=== PATIENT | female | born 1995 | race Caucasian/White ===

== ENCOUNTER 2020-06-05 16:58 | Emergency (ER) | payer OTHER, SELFPAY ==
--- NOTE | ~2020-06-05 | CT_ITS ---
EXAMINATION: CT orbit BI w con DATE: 06/05/2020 20:30 INDICATION: Right periorbital cellulitis. TECHNIQUE: Computed tomography (CT) of the orbits was performed with 100 mL Omnipaque 350 intravenous contrast. Automated exposure control and iterative reconstruction technique were employed. The dose- length product was 193.53 mGy-cm. COMPARISON: None. FINDINGS: There is right periorbital fat stranding, consistent with cellulitis. The orbits are normal . There is mild mucosal thickening in the maxillary sinuses. The mastoid air cells are normal. IMPRESSION: 1. Mild right periorbital cellulitis. No orbital involvement. Reviewed, dictated and finalized at [facility].
[2020-06-05 18:17] VITALS: BP 120/79; PULSE 94; RESP 18; TEMP 36.4; O2SAT 96
--- NOTE | 2020-06-05 19:31 | ED.EYEPROB ---
HPI - Eye Problem General Chief complaint: Eye Problems Stated complaint: SWELLING TO RIGHT EYE Time Seen by Provider: 06/05/20 19:31 Source: patient Mode of arrival: ambulatory Limitations: no limitations History of Present Illness HPI Narrative: Patient is a 24-year-old female who presents for evaluation of right eye irritation. Patient states irritation began approximately 4 days ago and she thought it started as the beginning of a stye which she has these from time to time in her eyelashes. Patient states pain at the site that is dull, aching in nature. She denies any current discharge. No blistering on the forehead. Patient does report some tingling around the eye, she denies vision changes, blurry vision or trauma to the eye. She does not wear contact lenses although she is prescribed these. She denies fever. She denies any pain with movement of the eyes. Patient's primary care physician sent her here for evaluation as they were worried about orbital cellulitis. Related Data Allergies Allergy/AdvReac Type Severity Reaction Status Date / Time No Known Allergies Allergy Unknown Unverified 07/20/19 08:32 No Known Allergies Allergy Uncoded 07/20/19 08:32 Review of Systems Review of Systems: Narrative: CONSTITUTIONAL: Denies fever HEENT: Reports bump, irritation on bottom part of left eyelid, denies discharge from my, denies blurry vision or double vision CARDIOVASCULAR: Denies chest pain RESPIRATORY: Denies cough or dyspnea. GASTROINTESTINAL: Denies abdominal pain SKIN: Denies rash MUSCULOSKELETAL: Denies back pain NEUROLOGIC: Denies headache PMFSH Past Medical History Medical History (Updated 06/05/20 @ 20:49 by Janet Mason MD) No pertinent past medical history Social History Social History (Updated 06/05/20 @ 19:41 by Janet Mason MD) Smoking status: Never smoker Alcohol intake: never Substance use: never Gender identity (if verbalized by the patient): Female Exam Narrative: Exam Narrative: GENERAL: Awake, alert, conversant HEAD: Normocephalic, atraumatic. EYES: 2+ PERRLA, extraocular movements intact, no pain in the eye with extraocular movements, no proptosis, no conjunctival injection, edema of the inferior eyelid, small pustule present, no vesicle, no blistering of the forehead, nose, maxilla or chin, mild left inferior eye orbit edema, rash to the bilateral maxilla, patient states this is chronic for her ENT: Nares clear, no rhinorrhea or epistaxis. Mucous membranes moist. NECK: Supple. CHEST: No respiratory distress, breathing even and non labored HEART: Regular rate, sinus rhythm ABDOMEN:Non distended, non tender EXTREMITIES: Normal range of motion. No edema. SKIN: Warm, dry NEURO:No focal deficits. Alert and oriented x3 Course Vital Signs Vital signs: Vital Signs Temperature 36.4 C L 06/05/20 18:17 Pulse Rate 94 06/05/20 18:17 Respiratory Rate 18 06/05/20 18:17 Blood Pressure 120/79 06/05/20 18:17 Pulse Oximetry 96 06/05/20 18:17 Temperature 36.6 C 06/05/20 21:43 Pulse Rate 80 06/05/20 21:43 Respiratory Rate 19 06/05/20 21:43 Blood Pressure 115/74 06/05/20 21:43 Pulse Oximetry 98 06/05/20 21:43 MDM - Eye Problem MDM Narrative Medical decision making narrative: Patient presented for evaluation of right eye irritation. The time of initial assessment, ABCs are intact and vital signs are stable. Patient without proptosis, no conjunctival injection, no pain with extraocular movements and no visual deficits making my suspicion for orbital cellulitis very low. This may be an early periorbital cellulitis, there is no large active stye, no vesicles to be concerning for shingles or herpetic infection at this point. Laboratory results are reassuring. No severe leukocytosis. Patient is not septic. Given reassuring exam without visual deficits, no CT scan findings concerning for orbital cellulitis, patient tolerating oral intake, will give fir
[2020-06-05 19:50] VITALS: BP 103/71; PULSE 81; RESP 19; O2SAT 98
[2020-06-05] MEDS: ACETAMINOPHEN 500 MG TABLET 1000 MG PO (19:50)
[2020-06-05 19:54] LABS: Basophils Percent Auto 0.2 % (0.2-1.2); Eosinophils Absolute Auto 0.1 K/mm3 (0-0.3); Eosinophils Percent Auto 1.7 % (0-4.4); Hematocrit 40.3 % (37.0-47.0); Hemoglobin 13.3 g/dL (12.0-15.0); Immature Granulocyte Absolute 0.02 K/mm3 (0.00-0.031); Immature Granulocyte Percent A 0.3 % (0-0.5); Lymphocytes Absolute Auto 1.84 K/mm3 (0.9-3.2); Lymphocytes Percent Auto 30.5 % (18.3-44.2); Mean Corpuscular Hemoglobin 29.8 pg (26-34); Mean Corpuscular Volume 90.2 fl (80-100); Mean Platelet Volume 10.3 fl (7.4-10.4); Monocytes Absolute Auto 0.5 K/mm3 (0.1-0.6); Monocytes Percent Auto 8.4 % (2.6-8.5); Neutrophils Absolute Auto 3.6 K/mm3 (1.3-6.7); Neutrophils Percent Auto 58.9 % (45.5-73.1); Platelet Count Result 258 k/mm3 (150-375); Red Blood Count 4.47 M/mm3 (4.2-5.4); Red Cell Distribution Width 12.4 % (11.5-14.5)
[2020-06-05 20:09] LABS: Anion Gap 6 mmol/L (8-16); Blood Urea Nitrogen 14 mg/dL (7-17); CRP < 0.5 mg/dL (<1.0); Calcium 8.6 mg/dL (8.4-10.2); Carbon Dioxide 27 mmol/L (22-30); Chloride 105 mmol/L (98-107); Estimated CRCL calculation 88 ml/min; Estimated Glomerular Filt Rate > 60; Glucose 88 mg/dL (65-105); Sodium 138 mmol/L (137-145)
[2020-06-05] MEDS: CLINDAMYCIN 450 MG in DEXTROSE 5% IN WATER 50 ML 106 MG IVPB (21:14)
[2020-06-05 21:43] VITALS: BP 115/74; PULSE 80; RESP 19; TEMP 36.6; O2SAT 98
== END 2020-06-05 21:45 | disposition home or self-care (01) ==
PROVIDERS: Emergency Provider Emergency Medicine
DX: L03.213 Periorbital cellulitis (principal)
CPT/HCPCS: 36415; 70481; 80048; 85025; 86140; 96365; 99284; A9270; Q9967

== ENCOUNTER 2020-08-19 02:10 | Emergency (ER) | payer OTHER, SELFPAY ==
--- NOTE | ~2020-08-19 | CT_ITS ---
EXAMINATION: CTA chest PE protocol DATE: 08/19/2020 03:45 INDICATION: Chest pain. History of lupus. TECHNIQUE: Computed tomography angiography (CTA) of the chest was performed with 100 mL Omnipaque-350 intravenous contrast timed to evaluate the pulmonary arteries. Coronal maximum intensity projection 3D-reconstructions were created by the technologist. Automated exposure control and iterative reconst ruction technique were employed. Exam dose: 174.98 mGy-cm total exam DLP. COMPARISON: None. FINDINGS: There is diagnostic contrast enhancement of the pulmonary arteries and no evidence of pulmo nary embolism. No thoracic aortic aneurysm or dissection. No hilar or mediastinal mass lesion or lymphadenopathy. Normal heart size. No pericardial or pleural effusion. Normal adrenal glands. Included upper abdominal structures are unremarkable. There is significant narrowing of the right subclavian vein at the junction of the first rib and clav icle/with large collaterals in the right neck and right upper back. Recommend clinical correlation fo r thoracic outlet syndrome. No pulmonary infiltrate or consolidation. No pulmonary mass lesion. Included skeletal structures are unremarkable. IMPRESSION: No evidence of pulmonary embolism Possible thoracic outlet syndrome on the right Reviewed, dictated and finalized at [facility]. Reviewed, dictated and finalized at [facility]. CURER
[2020-08-19 02:15] VITALS: BP 130/98; PULSE 81; RESP 18; TEMP 36.3; O2SAT 100
--- NOTE | 2020-08-19 02:23 | ECG_ITS ---
Measurements Intervals [place] Rate: 75 P: 67 ND: 180 QRS: 94 QRSD: 95 T: 40 QT: 392 QTc: 439 Interpretive Statements SINUS RHYTHM RIGHT AXIS DEVIATION BORDERLINE ECG Electronically Signed On 08-19-2020 8:04:37 TIMBER INSPECTOR by Kiko De Leon D.O.
[2020-08-19 02:37] VITALS: PULSE 73
[2020-08-19 02:39] LABS: Basophils Percent Auto 0.5 % (0.2-1.2); Eosinophils Absolute Auto 0.1 K/mm3 (0-0.3); Eosinophils Percent Auto 1.6 % (0-4.4); Hematocrit 37.3 % (37.0-47.0); Hemoglobin 12.5 g/dL (12.0-15.0); Immature Granulocyte Absolute 0.01 K/mm3 (0.00-0.031); Immature Granulocyte Percent A 0.3 % (0-0.5); Lymphocytes Absolute Auto 1.66 K/mm3 (0.9-3.2); Lymphocytes Percent Auto 44.6 % (18.3-44.2); Mean Corpuscular HGB Conc 33.5 g/dl (32-36); Mean Corpuscular Hemoglobin 29.9 pg (26-34); Mean Corpuscular Volume 89.2 fl (80-100); Mean Platelet Volume 10.2 fl (7.4-10.4); Monocytes Absolute Auto 0.4 K/mm3 (0.1-0.6); Monocytes Percent Auto 11.8 % (2.6-8.5); Neutrophils Absolute Auto 1.5 K/mm3 (1.3-6.7); Neutrophils Percent Auto 41.2 % (45.5-73.1); Platelet Count Result 272 k/mm3 (150-375); Red Blood Count 4.18 M/mm3 (4.2-5.4); Red Cell Distribution Width 12.6 % (11.5-14.5); White Blood Count 3.7 K/mm3 (4.5-10.0)
[2020-08-19 02:48] LABS: INR 1.1; Partial Thromboplastin Time 28.8 SECONDS (22.3-36.8); Prothrombin Time 14.7 Seconds (11.1-14.7)
[2020-08-19 02:52] LABS: Anion Gap 8 mmol/L (8-16); Blood Urea Nitrogen 12 mg/dL (7-17); Calcium 9.3 mg/dL (8.4-10.2); Carbon Dioxide 27 mmol/L (22-30); Chloride 102 mmol/L (98-107); Estimated Glomerular Filt Rate > 60; Glucose 124 mg/dL (65-105); Potassium 3.8 mmol/L (3.4-5.0); Sodium 137 mmol/L (137-145)
[2020-08-19 03:05] LABS: NT Pro B Type Natriuretic Pept 22 PG/ML (5-100); Troponin I < 0.012 ng/mL (0.000-0.034)
[2020-08-19 03:35] VITALS: BP 102/74; PULSE 71; RESP 17; O2SAT 99
--- NOTE | 2020-08-19 04:47 | ED.CHESTPAIN ---
HPI - Chest Pain General Chief Complaint: Chest Pain Stated Complaint: chest and back pain Time Seen by Provider: 08/19/20 02:34 History of Present Illness HPI narrative: Patient a 22-year-old female presents emerged part with chief complaint of chest pain. The patient states that the pain has been going on for several days states it is sharp states it is not improved by anything nor is worsened by any. The patient reports that recently she was diagnosed with possible lupus and is to see a button machine operator about it. Patient states that she is not having any shortness of breath denies hypoxia denies tachycardia. The patient denies a history of connective tissue disorder. Related Data Allergies Allergy/AdvReac Type Severity Reaction Status Date / Time No Known Allergies Allergy Unknown Unverified 07/20/19 08:32 No Known Allergies Allergy Uncoded 07/20/19 08:32 Review of Systems Review of Systems: Narrative: CONSTITUTIONAL: Denies fever, chills, or sweats. EYES: Denies visual changes, redness, or discharge. ENT: Denies rhinorrhea, congestion, sore throat, or otalgia. CARDIOVASCULAR: Denies chest pain, palpitations, or edema. RESPIRATORY: Denies cough or dyspnea. GASTROINTESTINAL: Denies abdominal pain, nausea, vomiting, or diarrhea. GENITOURINARY: Denies dysuria or hematuria. SKIN: Denies rash or itching. MUSCULOSKELETAL: Denies back pain, joint pain, or myalgia. NEUROLOGIC: Denies headache, numbness, or weakness. PSYCHIATRIC: Denies anxiety or depression. A 10 system review of systems was completed on the patient and is negative except for what is stated in the HPI. Nursing and ancillary documentation was reviewed. PMFSH Past Medical History Medical History No pertinent past medical history Social History Social History Smoking status: Never smoker Alcohol intake: never Substance use: never Gender identity (if verbalized by the patient): Female Comments Recent diagnosis of lupus Exam Narrative: Exam Narrative: GENERAL: Well-appearing, well-nourished, and in no acute distress. HEAD: Normocephalic, atraumatic. EYES: PERRLA and EOMI. ENT: Nares clear, no rhinorrhea or epistaxis. Mucous membranes moist. NECK: Supple. CHEST: Clear to auscultation. No respiratory distress. HEART: Regular rate and rhythm. No murmur heard. Normal peripheral pulses. ABDOMEN: Soft, nontender, nondistended, normal active bowel sounds. EXTREMITIES: Normal range of motion. No edema. SKIN: Warm, dry, no rash. NEURO: No focal deficits. Alert and oriented x3. PSYCH: Normal mood and affect. Course Course Emergency Course: CTA chest shows evidence of thoracic outlet syndrome. There is no evidence of pulmonary embolism EKG shows sinus rhythm no ST elevation or ST depression Vital Signs Vital signs: Vital Signs Temperature 36.3 C L 08/19/20 02:15 Pulse Rate 81 08/19/20 02:15 Respiratory Rate 18 08/19/20 02:15 Blood Pressure 130/98 H 08/19/20 02:15 Pulse Oximetry 100 08/19/20 02:15 Temperature 36.3 C L 08/19/20 02:15 Pulse Rate 71 08/19/20 03:35 Respiratory Rate 17 08/19/20 03:35 Blood Pressure 102/74 08/19/20 03:35 Pulse Oximetry 99 08/19/20 03:35 MDM - Chest Pain Lab Data Result diagrams: 08/19/20 02:31 08/19/20 02:31 Labs: Lab Results 08/19/20 08/19/20 08/19/20 Range/Units 02:31 02:31 02:31 WBC 3.7 L (4.5-10.0) K/mm3 RBC 4.18 L (4.2-5.4) M/mm3 Hgb 12.5 (12.0-15.0) g/dL Hct 37.3 (37.0-47.0) % MCV 89.2 (80-100) fl MCH 29.9 (26-34) pg MCHC 33.5 (32-36) g/dl RDW 12.6 (11.5-14.5) % Plt Count 272 (150-375) k/mm3 MPV 10.2 (7.4-10.4) fl Immature Gran % (Auto) 0.3 (0-0.5) % Neut % (Auto) 41.2 L (45.5-73.1) % Lymph % (Auto) 44.6 H (18.3-44.2) % [place] % (Auto) 11.8 H
[2020-08-19 05:02] VITALS: BP 116/53; PULSE 75; RESP 18; TEMP 36.8; O2SAT 94
== END 2020-08-19 05:05 | disposition home or self-care (01) ==
PROVIDERS: Emergency Provider Emergency Medicine
DX: G54.0 Brachial plexus disorders (principal); R07.9 Chest pain, unspecified; R94.31 Abnormal electrocardiogram [ECG] [EKG]
CPT/HCPCS: 36415; 71275; 80048; 81025; 83880; 84484; 85025; 85610; 85730; 93005; 99284; Q9967

== ENCOUNTER 2020-08-29 04:09 | Emergency (ER) | payer OTHER, SELFPAY ==
[2020-08-29 04:12] VITALS: BP 110/67; PULSE 82; RESP 14; TEMP 36.4; O2SAT 98
--- NOTE | 2020-08-29 04:49 | ED.ABDPAIN ---
HPI - Abdominal Pain General Chief Complaint: Abdominal Pain Stated Complaint: neck and abd pain Time Seen by Provider: 08/29/20 04:19 Source: patient Mode of arrival: ambulatory Limitations: no limitations History of Present Illness HPI narrative: This patient is 24 year old female who presents for evaluation of lower abdominal pain. She states this pain has been present for over 1 week. She describes pain has sharp and intermittent. Her pain last for few seconds before it resolves. She has not taken anything for pain. She reports sexual intercourse is painful. Related Data Allergies Allergy/AdvReac Type Severity Reaction Status Date / Time No Known Allergies Allergy Unknown Verified 08/29/20 04:16 Review of Systems Review of Systems: All systems reviewed & are unremarkable except as noted in HPI and below Constitutional: Constitutional: Denies chills and Denies fever(s) ENT: Denies nasal congestion Cardiovascular: Cardiovascular: Denies chest pain Respiratory: Respiratory: Denies dyspnea Gastrointestinal: Gastrointestinal: Reports abdominal pain, Denies diarrhea, Denies nausea and Denies vomiting Genitourinary: Genitourinary: Denies hematuria and Denies nocturia [facility] Past Medical History Medical History No pertinent past medical history Social History Social History Smoking status: Never smoker Alcohol intake: never Substance use: never Gender identity (if verbalized by the patient): Female Exam Const: General: no acute distress and alert Orientation/consciousness: patient oriented x3 HENMT: Head: normocephalic and atraumatic Face and sinus: face symmetric Eyes: EOM: EOMs intact bilaterally Chest: Chest palpation & inspection: normal inspection of the chest Resp: Effort & Inspection: normal respiratory effort and no use of accessory muscles Auscultation: clear to auscultation bilaterally Cardio: Rate: regular rate Rhythm: regular rhythm Heart sounds: no murmurs GI: GI Palp: Yes Soft to palpation, No Tenderness to palpation present (GI) and No Guarding due to palpation present (GI) Auscultation: normal bowel sounds : Speculum Exam - Cervix: Cervical os closed Other: white mucous cervical , +CMT Skin: General skin exam: normal color Rashes: no rashes Neuro: General: patient oriented x3 and moves all extremities Extrem: General: normal to inspection and no pedal edema Other: bilateral radial pulse Psych: Mental Status: mental status grossly normal Affect: normal affect Course Reevaluation(s) Reevaluation #1: PAtient evaluation has been unremarkable other than CMT with some white discharge. I have discussed with patient that labs are unremarkable but she will be treated with antibiotics for PID due to pain and discharge. Date: 08/29/20 Time: 06:03 Vital Signs Vital signs: Vital Signs Temperature 97.6 F 08/29/20 04:12 Pulse Rate 82 08/29/20 04:12 Respiratory Rate 14 08/29/20 04:12 Blood Pressure 110/67 08/29/20 04:12 Pulse Oximetry 98 08/29/20 04:12 Temperature 97.6 F 08/29/20 04:12 Pulse Rate 64 08/29/20 06:20 Respiratory Rate 15 08/29/20 06:20 Blood Pressure 105/77 08/29/20 06:20 Pulse Oximetry 97 08/29/20 06:20 MDM - Abdominal Pain Lab Data Attestation: I reviewed the patient's lab results. Result diagrams: 08/29/20 04:39 08/29/20 04:39 Labs: Lab Results 08/29/20 08/29/20 08/29/20 Range/Units 04:39 04:39 04:39 WBC 4.6 (4.5-10.0) K/mm3 RBC 4.21 (4.2-5.4) M/mm3 Hgb 12.7 (12.0-15.0) g/dL Hct 38.5 (37.0-47.0) % MCV 91.4 (80-100) fl MCH 30.2 (26-34) pg MCHC 33.0 (32-36) g/dl RDW 12.3 (11.5-14.5) % Plt Count 216 (150-375) k/mm3 MPV 10.7 H (7.4-10.4) fl Immature Gran % (Auto) 0.0 (0-0.5) % Neut % (Auto)
[2020-08-29 04:56] LABS: Add Urine Microscopic? YES; Appearance Urine Clear (Clear); Bacteria Urine Trace /hpf; Bilirubin Urine Negative (Negative); Blood Urine Negative (Negative); Color Urine Yellow (Yellow); Glucose Urine UA Negative (Negative); Ketones Urine Negative (Negative); Leukocyte Esterase Ur Negative LEU/UL (Negative); Mucus Urine Rare /lpf; Nitrate Urine Negative (Negative); Protein Urine Negative (Negative); RBC Urine 0-2 /hpf (0-2); Specific Grav Ur 1.029 (1.001-1.035); Squamous Epithelial Cell Urine Many /hpf (Few); Urobilinogen Urine Negative mg/dL (<2.0); WBC Urine 0-3 /hpf
[2020-08-29 04:59] LABS: Basophils Percent Auto 0.4 % (0.2-1.2); Eosinophils Absolute Auto 0.1 K/mm3 (0-0.3); Eosinophils Percent Auto 1.5 % (0-4.4); Hematocrit 38.5 % (37.0-47.0); Hemoglobin 12.7 g/dL (12.0-15.0); Lymphocytes Absolute Auto 1.62 K/mm3 (0.9-3.2); Lymphocytes Percent Auto 35.5 % (18.3-44.2); Mean Corpuscular Hemoglobin 30.2 pg (26-34); Mean Corpuscular Volume 91.4 fl (80-100); Mean Platelet Volume 10.7 fl (7.4-10.4); Monocytes Absolute Auto 0.5 K/mm3 (0.1-0.6); Neutrophils Absolute Auto 2.4 K/mm3 (1.3-6.7); Neutrophils Percent Auto 51.6 % (45.5-73.1); Platelet Count Result 216 k/mm3 (150-375); Red Blood Count 4.21 M/mm3 (4.2-5.4); Red Cell Distribution Width 12.3 % (11.5-14.5); White Blood Count 4.6 K/mm3 (4.5-10.0)
[2020-08-29 05:11] LABS: Alanine Aminotransferase 13 U/L (4-35); Albumin Level 4.1 g/dL (3.5-5.1); Alkaline Phosphatase 42 U/L (38-126); Anion Gap 6 mmol/L (8-16); Aspartate Amino Transferase 24 U/L (14-36); Bilirubin,Total 0.3 mg/dL (0.2-1.3); Blood Urea Nitrogen 19 mg/dL (7-17); Calcium 9.2 mg/dL (8.4-10.2); Carbon Dioxide 30 mmol/L (22-30); Chloride 104 mmol/L (98-107); Estimated CRCL calculation 85 ml/min; Estimated Glomerular Filt Rate > 60; Glucose 75 mg/dL (65-105); Lipase 89 U/L (23-300); Potassium 3.7 mmol/L (3.4-5.0); Sodium 140 mmol/L (137-145)
[2020-08-29] MEDS: cefTRIAXone 250 MG VIAL IM (05:51)
[2020-08-29] MEDS: LIDOCAINE HCL 1% LOCAL INJ 20 ML VIAL (05:51)
[2020-08-29 06:20] VITALS: BP 105/77; PULSE 64; RESP 15; O2SAT 97
== END 2020-08-29 06:20 | disposition home or self-care (01) ==
PROVIDERS: Emergency Provider General Practice
DX: N73.9 Female pelvic inflammatory disease, unspecified (principal)
CPT/HCPCS: 36415; 80053; 81001; 81025; 83690; 85025; 87070; 87491; 87591; 87808; 96372; 99284; J0696

== ENCOUNTER 2021-03-09 16:53 | Emergency (ER) | payer OTHER, SELFPAY ==
[2021-03-09 16:58] VITALS: BP 121/81; PULSE 85; RESP 16; TEMP 36.9; O2SAT 100
--- NOTE | 2021-03-09 17:02 | ED.FEMALEGU ---
HPI - Female Genitourinary General Chief complaint: Headache Stated complaint: Headaches and Possible UTI Time Seen by Provider: 03/09/21 17:07 Source: patient and RN notes reviewed Mode of arrival: ambulatory Limitations: no limitations History of Present Illness HPI Narrative: 24-year-old female presents with multiple concerns. She reports 2-month history of daily headaches, often causing her to stay in bed during the day. She reports they are one-sided headaches, sometimes behind her right eye. She denies any light sensitivity or aura. She denies any history of migraines. She denies any vomiting, however reports occasional nausea with the headaches. In a separate complaint she also reports left lower abdominal pain radiating to the left side and left flank. She reports the pain is intermittent and has been increasing in frequency and severity over the last 2 weeks. She denies urine urgency, frequency, hematuria. She was recently diagnosed with lupus, started on methotrexate approximately 3 weeks ago. She denies constipation, reports occasional loose stools. She denies weight loss, decreased appetite. She reports intermittent fevers, however reports she chronically has fevers due to her this. She reports runny nose that started yesterday, denies other upper respiratory symptoms. MD elicited complaint: UTI Related Data Home Medications Medication Instructions Recorded Confirmed cetirizine mg 03/09/21 03/09/21 duloxetine 30 mg PO BID 03/09/21 03/09/21 folic acid 03/09/21 hydroxychloroquine 03/09/21 methotrexate sodium 03/09/21 prednisone 15 mg PO DAILY 03/09/21 03/09/21 Allergies Allergy/AdvReac Type Severity Reaction Status Date / Time No Known Allergies Allergy Unknown Verified 03/09/21 17:03 Review of Systems Review of Systems: Narrative: CONSTITUTIONAL: Denies malaise, chills. Reports intermittent sweats and fever. EYES: Denies visual changes, redness, or discharge. ENT: Reports rhinorrhea. Denies congestion, sinus pain, otalgia or sore throat. CARDIOVASCULAR: Denies chest pain, palpitations, or edema. RESPIRATORY: Denies cough or dyspnea. GASTROINTESTINAL: Reports left lower quadrant abdominal pain, nausea. Denies vomiting, constipation, bloody, or mucous stools. Reports occasional loose stool. GENITOURINARY: Denies dysuria frequency, urgency, or hematuria. Reports left flank pain MUSCULOSKELETAL: Denies back pain, joint pain, or myalgia. NEUROLOGIC: Denies numbness, weakness. Reports headache. All systems reviewed & are unremarkable except as noted in HPI and below PMFSH Past Medical History Medical History No pertinent past medical history Social History Social History Smoking status: Never smoker Alcohol intake: never Substance use: never Gender identity (if verbalized by the patient): Female Comments At time of signature, agree with nursing past medical, surgical, social and family history. There is no relevant family history pertinent to the presenting complaint Exam Narrative: Exam Narrative: GENERAL: Well-appearing, well-nourished, and in no acute distress. HEAD: Normocephalic. EYES: PERRLA, conjunctivae clear. NECK: Supple. No lymphadenopathy CHEST: Clear to auscultation. No respiratory distress. HEART: Regular rate and rhythm. ABDOMEN: Soft, left lower quadrant tenderness, nondistended, normal active bowel sounds, no palpable or pulsatile masses, no guarding. No CVA tenderness SKIN: Warm, dry. Butterfly rash NEURO: Alert and oriented x3. No focal deficits PSYCH: Normal mood and affect Course Course Emergency Course: Patient is aware of, understands and agrees to return to be seen the emergency department. Anticipatory guidance given. Patient agrees to proceed directly to the emergency department. Portions of this record may have been created
--- NOTE | 2021-03-09 17:46 | PC.NURSE ---
NO URINE CULTURE PER PROVIDER. PATIENT GOING TO [facility].
== END 2021-03-09 17:40 | disposition short-term general hospital (02) ==
PROVIDERS: Emergency Provider Nurse Practitioner
DX: R10.32 Left lower quadrant pain (principal); R51.9 Headache, unspecified; M32.9 Systemic lupus erythematosus, unspecified
CPT/HCPCS: 81003; 81025; 99213; G0463

== ENCOUNTER 2021-03-09 19:33 | Emergency (ER) | payer OTHER, SELFPAY ==
[2021-03-09 19:39] VITALS: BP 133/77; PULSE 102; RESP 16; TEMP 36.6; O2SAT 99
[2021-03-09 21:04] LABS: Basophils Percent Auto 0.3 % (0.2-1.2); Eosinophils Percent Auto 0.5 % (0-4.4); Hematocrit 43.3 % (37.0-47.0); Immature Granulocyte Absolute 0.02 K/mm3 (0.00-0.031); Immature Granulocyte Percent A 0.3 % (0-0.5); Lymphocytes Absolute Auto 0.98 K/mm3 (0.9-3.2); Lymphocytes Percent Auto 15.7 % (18.3-44.2); Mean Corpuscular HGB Conc 32.3 g/dl (32-36); Mean Corpuscular Hemoglobin 30.2 pg (26-34); Mean Corpuscular Volume 93.5 fl (80-100); Mean Platelet Volume 9.9 fl (7.4-10.4); Monocytes Absolute Auto 0.4 K/mm3 (0.1-0.6); Monocytes Percent Auto 6.9 % (2.6-8.5); Neutrophils Absolute Auto 4.8 K/mm3 (1.3-6.7); Neutrophils Percent Auto 76.3 % (45.5-73.1); Platelet Count Result 298 k/mm3 (150-375); Red Blood Count 4.63 M/mm3 (4.2-5.4); Red Cell Distribution Width 12.9 % (11.5-14.5); White Blood Count 6.2 K/mm3 (4.5-10.0)
[2021-03-09 21:13] LABS: Add Urine Microscopic? NO; Appearance Urine Clear (Clear); Bilirubin Urine Negative (Negative); Blood Urine Negative (Negative); Color Urine Straw (Yellow); Glucose Urine UA Negative (Negative); Ketones Urine Negative (Negative); Leukocyte Esterase Ur Negative LEU/UL (Negative); Nitrate Urine Negative (Negative); Protein Urine Negative (Negative); Specific Grav Ur 1.009 (1.001-1.035); Urobilinogen Urine Negative mg/dL (<2.0)
[2021-03-09 21:16] LABS: Alanine Aminotransferase 17 U/L (4-35); Alkaline Phosphatase 50 U/L (38-126); Anion Gap 9 mmol/L (8-16); Aspartate Amino Transferase 26 U/L (14-36); Bilirubin,Total 0.3 mg/dL (0.2-1.3); Blood Urea Nitrogen 12 mg/dL (7-17); Calcium 9.8 mg/dL (8.4-10.2); Carbon Dioxide 28 mmol/L (22-30); Chloride 103 mmol/L (98-107); Estimated CRCL calculation 105 ml/min; Estimated Glomerular Filt Rate > 60; Glucose 86 mg/dL (65-105); Lipase 114 U/L (23-300); Sodium 140 mmol/L (137-145)
--- NOTE | 2021-03-09 22:39 | ED.GENADULT ---
HPI - General Adult General Chief complaint: Abdominal Pain Stated complaint: Left sided flank pain, [place] Time Seen by Provider: 03/09/21 20:20 History of Present Illness HPI narrative: Patient is a 25-year-old female who presents ER with 2 complaints. First complaint is generalized abdominal discomfort mainly on the left side that occasionally goes to her back. Unknown aggravating or alleviating factors. No nausea/vomiting/diarrhea/constipation. No urinary frequency urgency or dysuria. Had an unremarkable UA at the urgent care. Patient also reports that she has been having headaches intermittently. Occasionally will be located behind the right eye and occasionally behind the left eye. No headache at this time. Has follow-up with neurology scheduled. Related Data Home Medications Medication Instructions Recorded Confirmed cetirizine 10 mg PO DAILY 03/09/21 03/09/21 duloxetine 30 mg PO BID 03/09/21 03/09/21 folic acid 1 mg PO DAILY 03/09/21 03/09/21 hydroxychloroquine 200 mg PO DAILY 03/09/21 03/09/21 methotrexate sodium 2.5 mg PO DAILY 03/09/21 03/09/21 prednisone 15 mg PO DAILY 03/09/21 03/09/21 Allergies Allergy/AdvReac Type Severity Reaction Status Date / Time No Known Allergies Allergy Unknown Verified 03/09/21 17:03 Review of Systems Review of Systems: All systems reviewed & are unremarkable except as noted in HPI and below Constitutional: Constitutional: Denies chills, Denies fever(s) and Denies weakness ENT: Denies nasal congestion and Denies sore throat Gastrointestinal: Gastrointestinal: Reports abdominal pain, Denies constipation, Denies diarrhea, Denies nausea and Denies vomiting Genitourinary: Genitourinary: Denies abnormal vaginal bleeding, Denies hematuria, Denies nocturia, Denies dysuria and Denies urinary incontinence PMF Past Medical History Medical History (Updated 03/09/21 @ 22:42 by Murtaza Villarreal MD) Lupus Surgical History Surgical History (Updated 03/09/21 @ 22:40 by Murtaza Villarreal MD) No pertinent past surgical history Social History Social History Smoking status: Never smoker Alcohol intake: never Substance use: never Gender identity (if verbalized by the patient): Female Exam Narrative: Exam Narrative: GENERAL: Well-appearing, well-nourished, and in no acute distress. HEAD: Normocephalic, atraumatic. EYES: PERRL and EOMI. CHEST: Clear to auscultation. No respiratory distress. HEART: Regular rate and rhythm. Normal peripheral pulses. ABDOMEN: Soft, nontender, nondistended. EXTREMITIES: Normal range of motion. No edema. SKIN: Warm, dry, no rash. NEURO: Alert and oriented x3. PSYCH: Normal mood and affect. Course Course Emergency Course: Unremarkable exam and evaluation. Follow-up with PCP. Discharge home. Vital Signs Vital signs: Vital Signs Temperature 97.9 F 03/09/21 19:39 Pulse Rate 102 H 03/09/21 19:39 Respiratory Rate 16 03/09/21 19:39 Blood Pressure 133/77 03/09/21 19:39 Pulse Oximetry 99 03/09/21 19:39 Temperature 97.9 F 03/09/21 19:39 Pulse Rate 102 H 03/09/21 19:39 Respiratory Rate 16 03/09/21 19:39 Blood Pressure 133/77 03/09/21 19:39 Pulse Oximetry 99 03/09/21 19:39 Medical Decision Making Vital Signs Vital Signs: Vital Signs Temperature 97.9 F 03/09/21 19:39 Pulse Rate 102 H 03/09/21 19:39 Respiratory Rate 16 03/09/21 19:39 Blood Pressure 133/77 03/09/21 19:39 Pulse Oximetry 99 03/09/21 19:39 Temperature 97.9 F 03/09/21 19:39 Pulse Rate 102 H 03/09/21 19:39 Respiratory Rate 16 03/09/21 19:39 Blood Pressure 133/77 03/09/21 19:39 Pulse Oximetry 99 03/09/21 19:39 Lab Data Result diagrams: 03/09/21 20:56 03/09/21 20:56 Labs: Lab Results 03/09/21 03/09/21 03/09/21 Range/Units 20:56 20:56 20:56 WBC 6.2 (4.5-10.0) K/mm3 RBC 4.63 (4.2-5.4) M/mm
[2021-03-09 23:00] VITALS: BP 127/74; PULSE 92; RESP 16; O2SAT 99
== END 2021-03-09 23:00 | disposition home or self-care (01) ==
PROVIDERS: Emergency Provider Emergency Medicine
DX: R10.84 Generalized abdominal pain (principal)
CPT/HCPCS: 36415; 80053; 81003; 81025; 83690; 85025; 99283

== ENCOUNTER 2021-05-04 12:10 | Emergency (ER) | payer OTHER, SELFPAY ==
--- NOTE | ~2021-05-04 | XR_ITS ---
EXAMINATION:XR cervical spine 4-5V DATE: 05/04/2021 13:38 INDICATION: Neck pain TECHNIQUE: AP, lateral, lateral swimmers and odontoid views of the cervical spine are provided. COMPARISON: None FINDINGS: Alignment is normal. The odontoid is intact. No fracture is identified. Vertebral body heig hts and disk spaces are normal. Prevertebral soft tissues are normal. IMPRESSION: 1. No acute osseous abnormality. Reviewed, dictated and finalized at location A.
--- NOTE | ~2021-05-04 | XR_ITS ---
EXAMINATION: XR lumbar spine 2-3V DATE: 05/04/2021 13:38 INDICATION: Low back pain TECHNIQUE: Anteroposterior and lateral views of the lumbar spine, and cone-down lateral view of the l umbosacral junction were obtained. COMPARISON: None. FINDINGS: There is no fracture, dislocation, or subluxation. The vertebral body heights, alignment, a nd intervertebral disc spaces are normal. The paravertebral soft tissues are unremarkable. IMPRESSION: 1. No acute osseous abnormality. Reviewed, dictated and finalized at location A.
[2021-05-04 12:33] VITALS: BP 105/70; PULSE 85; RESP 20; TEMP 36.9; O2SAT 100
[2021-05-04] MEDS: HYDROcodone/acetaminophen (*CRX) 5-325 MG TABLET 1 TAB PO (14:43)
[2021-05-04] MEDS: IBUPROFEN 600 MG TABLET PO (14:43)
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
== END 2021-05-04 15:24 | disposition home or self-care (01) ==
PROVIDERS: Emergency Provider Emergency Medicine
DX: S39.012A Strain of muscle, fascia and tendon of lower back, initial encounter (principal); S13.9XXA Sprain of joints and ligaments of unspecified parts of neck, initial encounter; V43.52XA Car driver injured in collision with other type car in traffic accident, initial encounter
CPT/HCPCS: 72050; 72100; 99283; A9270

== ENCOUNTER 2022-01-09 13:32 | Emergency (ER) | payer OTHER, SELFPAY ==
--- NOTE | ~2022-01-09 | XR_ITS ---
EXAMINATION: XR knee RT min 4V DATE: 01/09/2022 14:26 INDICATION: Right knee pain TECHNIQUE: Five views of the right knee were obtained. COMPARISON: None. FINDINGS: Alignment is normal. No fracture or osteochondral lesion. Joint spaces are normal with no e rosions. No joint effusion/synovitis. Soft tissues are unremarkable. IMPRESSION: 1. No acute osseous abnormality. Reviewed, dictated and finalized at location F.
[2022-01-09 13:39] VITALS: BP 119/75; PULSE 82; RESP 16; TEMP 36.7; O2SAT 100
--- NOTE | 2022-01-09 14:07 | ED.LOWEXIN ---
HPI - Extremity Injury (Lower) General Chief Complaint: Extremity Injury, Lower Stated Complaint: sore throat, congestion, right knee infection Time Seen by Provider: 01/09/22 14:09 Source: patient, RN notes reviewed and old records reviewed Mode of arrival: ambulatory Limitations: no limitations History of Present Illness HPI Narrative: 26 year old female who presents to express care with complaints of right knee pain from a fall which occurred 3 days ago when she tripped and fell onto concrete directly onto her right knee. Patient has healing abrasion to the anterior aspect of her right knee, no pain noted on palpation of knee, reports pain with ambulation. She also reports that she has had sore throat some post nasal drainage and a persistent cough.Patient denies any fevers chills or sweat, reports that she has not had COVID vaccination due to concern of interaction with medication she takes for LUPUS. Patient has red butterfly rash noted to face. MD complaint: knee injury Onset (ago): day(s) (3) Type of Injury: blunt Place: street/outdoors Severity: moderate Severity scale (1-10): 6 Exacerbating factors: weight bearing Context: fall Related Data Home Medications Medication Instructions Recorded Confirmed hydroxychloroquine 200 mg PO DAILY 03/09/21 01/09/22 belimumab [Benlysta] 200 mg SUBCUT WEEKLY 01/09/22 01/09/22 hydroxychloroquine [Plaquenil] 200 mg PO DAILY 01/09/22 01/09/22 mycophenolate mofetil [CellCept] 500 mg PO Q12H 01/09/22 01/09/22 prednisone 10 mg PO DAILY 01/09/22 01/09/22 Allergies Allergy/AdvReac Type Severity Reaction Status Date / Time No Known Allergies Allergy Unknown Verified 01/09/22 13:56 Review of Systems Review of Systems: CONSTITUTIONAL: Denies fever, chills, or sweats. EYES: Denies visual changes, redness, or discharge. ENT: positive rhinorrhea, congestion, sore throat, no otalgia. CARDIOVASCULAR: Denies chest pain, palpitations, or edema. RESPIRATORY: cough denies dyspnea. GASTROINTESTINAL: Denies abdominal pain, nausea, vomiting, or diarrhea. GENITOURINARY: Denies dysuria or hematuria. SKIN: Denies rash or itching. MUSCULOSKELETAL: Denies back pain,positive for right knee pain., or myalgia. NEUROLOGIC: Denies headache, numbness, or weakness. PSYCHIATRIC: Positive for history of anxiety or depression. All systems reviewed & are unremarkable except as noted in HPI and below PMFSH Past Medical History Medical History Lupus Thoracic outlet syndrome Surgical History Surgical History No pertinent past surgical history Social History Social History Smoking status: Never smoker Alcohol intake: never Substance use: never Gender identity (if verbalized by the patient): Female Comments At time of signature, agree with nursing past medical, surgical, social and family history. There is no relevant family history pertinent to the presenting complaint Exam Narrative: GENERAL: Well-appearing, well-nourished, and in no acute distress. HEAD: Normocephalic, atraumatic. EYES: PERRLA and EOMI. ENT: Nares red with turbinates swollen, clear rhinorrhea no epistaxis. Mucous membranes moist.TM's normal with good light reflex, throat with some rednes no leions exudates or acute tonsil swelling NECK: Supple.no lymphadenopathy CHEST: Clear to auscultation. No respiratory distress.SAO2 100% on room air.no tachypnea or dyspnea note HEART: Regular rate and rhythm. No murmur heard. Normal peripheral pulses. ABDOMEN: Soft, nontender, nondistended, normal active bowel sounds. EXTREMITIES: Normal range of motion. No edema. SKIN: Warm, dry, no rash. NEURO: No focal deficits. Alert and oriented x3. Course Course Level of Care: Express Care Visit Vital Signs Vital signs: Vital Signs Temperature 36.7 C 01/09/22 13:39 Pulse Rate 82
== END 2022-01-09 15:10 | disposition home or self-care (01) ==
PROVIDERS: Emergency Provider Registered Nurse
DX: J06.9 Acute upper respiratory infection, unspecified (principal); R05.9 Cough, unspecified; M25.561 Pain in right knee; Z20.822 Contact with and (suspected) exposure to COVID-19; M32.9 Systemic lupus erythematosus, unspecified; G54.0 Brachial plexus disorders; J45.909 Unspecified asthma, uncomplicated
CPT/HCPCS: 73564; 87081; 87426; 87880; 99213; C9803; G0463

== ENCOUNTER 2022-02-04 10:22 | Emergency (ER) | payer OTHER, SELFPAY ==
[2022-02-04 10:28] VITALS: BP 130/73; PULSE 101; RESP 14; TEMP 36.9; O2SAT 100
--- NOTE | 2022-02-04 11:04 | ED.ABDPAIN ---
HPI - Abdominal Pain General Chief Complaint: Abdominal Pain Stated Complaint: Abdominal Pain/ Time Seen by Provider: 02/04/22 11:04 Source: patient Mode of arrival: ambulatory Limitations: no limitations History of Present Illness HPI narrative: Ms. Power is a 26-year-old female patient presenting to the clinic today with complaints of abdominal cramping x3 days and nausea x1 week. She reports she took a test yesterday and it was positive. She denies any urinary symptoms, fever, or chills. She denies any vaginal bleeding or discharge. States the pain is currently a 5 or 6 out of 10 with the cramping. She does have a history of IBS with constipation. Last bowel movement was 2 days ago and was hard. Last menstrual period was last month at the beginning of the month per patient. Related Data Home Medications Medication Instructions Recorded Confirmed hydroxychloroquine 200 mg PO DAILY 03/09/21 02/04/22 belimumab [Benlysta] 200 mg SUBCUT WEEKLY 01/09/22 02/04/22 mycophenolate mofetil [CellCept] 500 mg PO Q12H 01/09/22 02/04/22 prednisone 10 mg PO DAILY 01/09/22 02/04/22 Allergies Allergy/AdvReac Type Severity Reaction Status Date / Time No Known Allergies Allergy Unknown Verified 02/04/22 10:40 Review of Systems Review of Systems: Pertinent positives per HPI. Patient denies any fever, chills, rash, headache, visual changes, dizziness, cough, runny nose, sore throat, shortness of breath, chest pain, palpitations, vomiting, diarrhea, or any urinary issues. PMFSH Past Medical History Medical History Lupus Thoracic outlet syndrome Surgical History Surgical History No pertinent past surgical history Social History Social History Smoking status: Never smoker Alcohol intake: never Substance use: never Gender identity (if verbalized by the patient): Female Comments At the time of my signature, I reviewed and agree with the nursing past medical, surgical, social, and family history. There is no relevant family history pertinent to the patient complaint. Exam Narrative: General: Well-developed, well nourished, in no apparent distress. Head: Normocephalic, atraumatic. Cardio: Regular rate and rhythm, s1 and s2 normal, no murmur appreciated. Resp: Clear to auscultation bilaterally, no rhonchi, rales, wheezing or rubs. Abdomen: Soft, pliable, mild tenderness to palpation over the upper and lower abdomen, no pain to palpation over the adnexa or fallopian tubes, bowel sounds present in all quadrants, no organomegly, no CVAT tenderness. : Deferred-denies any vaginal discharge or bleeding. Course Course Emergency Course: Portions of this record may have been created with voice recognition software. Level of Care: Express Care Visit Vital Signs Vital signs: Vital Signs Temperature 36.9 C 02/04/22 10:28 Pulse Rate 101 H 02/04/22 10:28 Respiratory Rate 14 02/04/22 10:28 Blood Pressure 130/73 02/04/22 10:28 Pulse Oximetry 100 02/04/22 10:28 Temperature 36.9 C 02/04/22 10:28 Pulse Rate 101 H 02/04/22 10:28 Respiratory Rate 14 02/04/22 10:28 Blood Pressure 130/73 02/04/22 10:28 Pulse Oximetry 100 02/04/22 10:28 Vital signs reviewed MDM - Abdominal Pain MDM Narrative Medical decision making narrative: At the time of visit patient is resting comfortably on the exam table. She reports that she is having some upper and lower abdominal cramping. Took a test yesterday and was positive. She denies any vaginal bleeding or discharge. History of IBS with constipation. Last BM was 2 days ago and was hard. I suspect that the patient has IBS with constipation and discussed the use of MiraLAX. 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
== END 2022-02-04 11:25 | disposition home or self-care (01) ==
PROVIDERS: Emergency Provider Nurse Practitioner Family
DX: O99.619 Diseases of the digestive system complicating pregnancy, unspecified trimester (principal); Z3A.00 Weeks of gestation of pregnancy not specified; K59.00 Constipation, unspecified; O99.119 Other diseases of the blood and blood-forming organs and certain disorders involving the immune mechanism complicating pregnancy, unspecified trimester; J45.909 Unspecified asthma, uncomplicated; M32.9 Systemic lupus erythematosus, unspecified; O99.519 Diseases of the respiratory system complicating pregnancy, unspecified trimester; O99.891 Other specified diseases and conditions complicating pregnancy
CPT/HCPCS: 81003; 81025; 99213; G0463

== ENCOUNTER 2022-07-31 09:32 | Emergency (ER) | payer OTHER, SELFPAY ==
[2022-07-31 09:38] VITALS: BP 116/66; PULSE 118; RESP 16; TEMP 36.7; O2SAT 99
--- NOTE | 2022-07-31 09:45 | ED.URI ---
HPI - URI/Sore Throat General Chief Complaint: Upper Respiratory Infection Stated Complaint: coughing, fever, shortness of breath Time Seen by Provider: 07/31/22 09:45 Source: patient and RN notes reviewed History of Present Illness HPI Narrative: patient is a 26-year-old female who presents to the Urgent Care with complaints of cough and sore throat. Patient states her symptoms started 2 days ago after her daughter still. Patient states she is 29 weeks and has not taken anything [id number] for her symptoms. Denies any nausea, vomiting or fever. Reports chills. No other acute complaints. No acute distress noted. Patient aware of the care. Some parts of this dictation were generated by voice recognition software and may contain typographical and/or grammatical inaccuracies. Related Data Home Medications Medication Instructions Recorded Confirmed No Home Medications 07/31/22 07/31/22 Allergies Allergy/AdvReac Type Severity Reaction Status Date / Time No Known Allergies Allergy Unknown Verified 07/31/22 09:48 Review of Systems Review of Systems: CONSTITUTIONAL: Denies fever, chills, or sweats. EYES: Denies visual changes, redness, or discharge. ENT: Denies rhinorrhea, congestion, otalgia. Reports of sore throat CARDIOVASCULAR: Denies chest pain, palpitations, or edema. RESPIRATORY: Reports of cough GASTROINTESTINAL: Denies abdominal pain, nausea, vomiting, or diarrhea. GENITOURINARY: Denies dysuria or hematuria. SKIN: Denies rash or itching. MUSCULOSKELETAL: Denies back pain, joint pain, or myalgia. NEUROLOGIC: Denies headache, numbness, or weakness. All other systems reviewed are negative, except as documented in HPI. [facility] Past Medical History Medical History Lupus Thoracic outlet syndrome Surgical History Surgical History No pertinent past surgical history Social History Social History Smoking status: Never smoker Alcohol intake: never Substance use: never Gender identity (if verbalized by the patient): Female Comments At the time of my signature, I reviewed and agree with the nursing past medical, surgical, social, and family history. There is no relevant family history pertinent to the patient complaint. Exam Narrative: GENERAL: This is a well-nourished, well-developed patient, in no apparent distress. HEAD: normocephalic, atraumatic. EYES: PERRL. Sclera clear/white. Vision is grossly intact. EARS: External ears normal, auditory canals clear and without drainage, TMs normal without perforation. Hearing grossly intact. NOSE: External nose normal with no obvious nasal discharge, nares without redness, clear rhinorrhea. THROAT: Mucous membranes moist, posterior pharynx clear. moderate postnasal drainage. NECK: Neck supple, non-tender without lymphadenopathy, masses or thyromegaly. CARDIOVASCULAR: Regular rate and rhythm without murmurs, gallops, or rubs. RESPIRATORY: Clear to auscultation. Breath sounds equal bilaterally. No wheezes, rales, or rhonchi. SKIN: warm, intact with no suspicious lesions or rash, good texture and turgor. NEURO: awake, alert, and oriented to person, place and time. There were no obvious focal neurologic abnormalities. EXTREMITIES: No clubbing, cyanosis, or edema. Course Course Level of Care: Express Care Visit Vital Signs Vital signs: Vital Signs Temperature 98.0 F 07/31/22 09:38 Pulse Rate 118 H 07/31/22 09:38 Respiratory Rate 16 07/31/22 09:38 Blood Pressure 116/66 07/31/22 09:38 Pulse Oximetry 99 07/31/22 09:38 Oxygen Delivery Room Air 07/31/22 09:38 Temperature 98.0 F 07/31/22 09:38 Pulse Rate 118 H 07/31/22 09:38 Respiratory Rate 16 07/31/22 09:38 Blood Pressure 116/66 07/31/22 09:38 Pulse Oximetry 99 07/31/22
== END 2022-07-31 10:30 | disposition home or self-care (01) ==
PROVIDERS: Emergency Provider Nurse Practitioner Family
DX: O99.513 Diseases of the respiratory system complicating pregnancy, third trimester (principal); Z3A.29 29 weeks gestation of pregnancy; J06.9 Acute upper respiratory infection, unspecified; G54.0 Brachial plexus disorders; M32.9 Systemic lupus erythematosus, unspecified; J45.909 Unspecified asthma, uncomplicated
CPT/HCPCS: 87081; 87804; 87880; 99213; G0463

== ENCOUNTER 2022-08-15 08:27 | Emergency (ER) | payer OTHER, SELFPAY ==
[2022-08-15 08:32] VITALS: BP 111/69; PULSE 118; RESP 18; TEMP 36.6; O2SAT 99
--- NOTE | 2022-08-15 08:55 | ED.URI ---
HPI - URI/Sore Throat General Chief Complaint: Upper Respiratory Infection Stated Complaint: Sore Throat/Ear Pain Time Seen by Provider: 08/15/22 08:40 Source: patient Mode of arrival: ambulatory Limitations: no limitations History of Present Illness HPI Narrative: Charlotte is a 26-year-old female patient presenting to the clinic today with complaints sore throat, ear pain, feeling fever, body aches, cough, and some shortness of breath since Thursday. She denies any known exposure to anybody with COVID, flu, or strep. She is currently 32 weeks MD elicited complaint: fever, cough, sore throat, rhinorrhea and nasal congestion Related Data Home Medications Medication Instructions Recorded Confirmed ferrous sulfate 325 mg (65 mg 325 mg PO BID 08/15/22 08/15/22 iron) tablet (FeroSul) hydroxychloroquine 200 mg tablet 200 mg PO DAILY 08/15/22 08/15/22 Allergies Allergy/AdvReac Type Severity Reaction Status Date / Time No Known Allergies Allergy Unknown Verified 08/15/22 08:49 Review of Systems Review of Systems: Pertinent positives per HPI. Patient denies any rash, headache, visual changes, dizziness, chest pain, palpitations, nausea, vomiting, diarrhea, constipation, abdominal pain, or any urinary issues. PMFSH Past Medical History Medical History Lupus Thoracic outlet syndrome Surgical History Surgical History No pertinent past surgical history Social History Social History Smoking status: Never smoker Alcohol intake: never Substance use: never Gender identity (if verbalized by the patient): Female Comments At the time of my signature, I reviewed and agree with the nursing past medical, surgical, social, and family history. There is no relevant family history pertinent to the patient complaint. Exam Narrative: General: Well-developed, well nourished, in no apparent distress Head: Normocephalic, atraumatic Eyes: Pupils equally round and reactive to light bilaterally, EOM intact, sclera and conjunctive clear, no discharge, lids normal Ears: TMs intact and dull, ear canals clear, no drainage, grossly hearing normal. Nose: Nares patent, clear nasal discharge, no inflammation, no sinus tenderness. Mouth: Oral pharynx without lesions or masses, good dentition, MMM. postnasal drip Neck: Supple, trachea midline, no enlargement of anterior or posterior cervical nodes, no thyroid masses or goiter palpable. Cardio: Regular rate and rhythm, s1 and s2 normal, no murmur appreciated. Resp: Clear to auscultation bilaterally, no rhonchi, rales, wheezing or rubs Course Course Emergency Course: Portions of this record may have been created with voice recognition software. Level of Care: Express Care Visit Vital Signs Vital signs: Vital Signs Temperature 36.6 C 08/15/22 08:32 Pulse Rate 118 H 08/15/22 08:32 Respiratory Rate 18 08/15/22 08:32 Blood Pressure 111/69 08/15/22 08:32 Pulse Oximetry 99 08/15/22 08:32 Oxygen Delivery Room Air 08/15/22 08:32 Temperature 36.6 C 08/15/22 08:32 Pulse Rate 118 H 08/15/22 08:32 Respiratory Rate 18 08/15/22 08:32 Blood Pressure 111/69 08/15/22 08:32 Pulse Oximetry 99 08/15/22 08:32 Oxygen Delivery Room Air 08/15/22 08:32 Vital signs reviewed MDM - URI/Sore Throat MDM Narrative Medical decision making narrative: at the time of visit patient is resting comfortably on the exam table. Influenza testing was completed and patient is positive for influenza A. Due to her and complaining of some shortness of breath I will go ahead and give her a prescription for some Tamiflu. States that she feels as though her symptoms are getting worse rather than better. Supportive measures were discussed with the patient she voiced under
== END 2022-08-15 09:00 | disposition home or self-care (01) ==
PROVIDERS: Emergency Provider Nurse Practitioner Family
DX: O99.891 Other specified diseases and conditions complicating pregnancy (principal); J10.1 Influenza due to other identified influenza virus with other respiratory manifestations; Z3A.32 32 weeks gestation of pregnancy
CPT/HCPCS: 87804; 99213; G0463

== ENCOUNTER 2023-01-20 14:23 | Emergency (ER) | payer OTHER, SELFPAY ==
--- NOTE | ~2023-01-20 | XR_ITS ---
EXAMINATION: XR abdomen/kub 1V DATE: 01/20/2023 16:05 INDICATION: Intrauterine device. TECHNIQUE: A supine view of the abdomen on 2 radiographs was obtained. COMPARISON: CT abdomen and pelvis 06/21/2017 FINDINGS: There are no dilated loops of bowel. An intrauterine device overlies the pelvis. IMPRESSION: 1. Intrauterine device overlying the pelvis in expected position. If there is clinical concern for ab normal positioning, consider ultrasound. Reviewed, dictated and finalized at location A. IMPRESSION: 1. Intrauterine device overlying the pelvis in expected position. If there is c linical concern for abnormal positioning, consider ultrasound.
[2023-01-20 14:30] VITALS: BP 119/72; PULSE 95; RESP 16; TEMP 37.1; O2SAT 100
--- NOTE | 2023-01-20 16:13 | ED.GENADULT ---
HPI - General Adult General Chief complaint: Urogenital-Female Stated complaint: Got IUD yesterday and she is in pain Source: patient, RN notes reviewed and old records reviewed Mode of arrival: ambulatory Limitations: no limitations History of Present Illness HPI narrative: 27-year-old female presents to Express Care with complaints of having an IUD placed yesterday and having pain today describes pain as tampon stuck in vagina, denies any fevers, or vaginal bleeding. Patient reports she put a message in on the physician's portal who performed procedure yesterday but has not heard anything back so she came to the urgent care. Call placed to the clinic where IUD was placed and spoke with nursing staff and they stated that normally they would get an ultrasound to check placement and they will call patient to set up test. Patient does have history of frequent UTI;s and also states history of Lupus and doesn't take any medications for disease process. MD complaint: IUD placed yesterday and is in pain. Onset (ago): day(s) (1) Location: genitals (vaginally) Severity scale (1-10): 6 Treatments prior to arrival: other (Tylenol) Related Data Allergies Allergy/AdvReac Type Severity Reaction Status Date / Time No Known Allergies Allergy Unknown Verified 01/20/23 14:37 Review of Systems Review of Systems: CONSTITUTIONAL: Denies fever, chills, or sweats. EYES: Denies visual changes, redness, or discharge. ENT: Denies rhinorrhea, congestion, sore throat, or otalgia. CARDIOVASCULAR: Denies chest pain, palpitations, or edema. RESPIRATORY: Denies cough or dyspnea. GASTROINTESTINAL: Denies abdominal pain, nausea, vomiting, or diarrhea. GENITOURINARY: Denies dysuria or hematuria.reports pelvic discomfort, history of UTI SKIN: Denies rash or itching. MUSCULOSKELETAL: Denies back pain, joint pain, or myalgia. NEUROLOGIC: Denies headache, numbness, or weakness. PSYCHIATRIC: Denies anxiety or depression. All systems reviewed & are unremarkable except as noted in HPI and below PMFSH Past Medical History Medical History (Updated 01/22/23 @ 11:50 by Janet Guardado NP) Lupus Pelvic inflammatory disease (PID) Sepsis secondary to UTI Thoracic outlet syndrome Surgical History Surgical History No pertinent past surgical history Social History Social History Smoking status: Never smoker Alcohol intake: never Substance use: never Gender identity (if verbalized by the patient): Female Comments At time of signature, agree with nursing past medical, surgical, social and family history. There is no relevant family history pertinent to the presenting complaint Exam Narrative: GENERAL: Well-appearing, well-nourished, and in no acute distress. HEAD: Normocephalic, atraumatic. EYES: PERRLA and EOMI.SAO2 100% on room air ENT: Nares clear, no rhinorrhea or epistaxis. Mucous membranes moist. NECK: Supple.no lymphadenopathy CHEST: Clear to auscultation. No respiratory distress.SAO2 100% on room air HEART: Regular rate and rhythm. No murmur heard. Normal peripheral pulses. ABDOMEN: Soft, nontender, nondistended, normal active bowel sounds.reports vaginal discomfort,denies any bleeding or fevers, urine cloudy in appearance history of past UTI's EXTREMITIES: Normal range of motion. No edema. SKIN: Warm, dry, no rash. NEURO: No focal deficits. Alert and oriented x3. Course Course Emergency Course: Patient is aware of diagnosis, understands and agrees to treatment plan.? Anticipatory guidance given.? Patient agrees to follow-up as directed and is aware of reasons to seek care at the emergency department. Portions of this record may have been created with voice recognition software Level of Care: Express Care Visit Vital Signs Vital signs: Vital Signs Temperature 37.1 C 01/20/23 14:30 Pulse Rate 95 01/20/23 14:30 Re
== END 2023-01-20 16:32 | disposition home or self-care (01) ==
PROVIDERS: Emergency Provider Registered Nurse
DX: R10.2 Pelvic and perineal pain (principal); N39.0 Urinary tract infection, site not specified; J45.909 Unspecified asthma, uncomplicated; M32.9 Systemic lupus erythematosus, unspecified
CPT/HCPCS: 74018; 81003; 81025; 87086; 99213; G0463

== ENCOUNTER 2023-04-29 11:50 | Emergency (ER) | payer OTHER, SELFPAY ==
--- NOTE | ~2023-04-29 | XR_ITS ---
Portable chest x-ray Comparison: None Clinical History: Chest pain Findings: Lungs are clear, without focal consolidation or pleural effusion. Cardiomediastinal silho uette is unremarkable. Bones and soft tissues are unremarkable. Impression: Normal chest. Reviewed, dictated and finalized at location . Impression: Normal chest.
[2023-04-29 11:57] VITALS: BP 124/94; PULSE 81; RESP 18; O2SAT 100
--- NOTE | 2023-04-29 12:27 | ECG_ITS ---
Measurements Intervals [place] Rate: 75 P: 60 FL: 184 QRS: 43 QRSD: 93 T: 39 QT: 362 QTc: 407 Interpretive Statements SINUS RHYTHM COMPARED TO ECG 08/19/2020 02:25:17 NO SIGNIFICANT CHANGES Electronically Signed On 04-29-2023 14:24:22 CDT by Mauri Atkins M.D.
--- NOTE | 2023-04-29 12:27 | ED.GENADULT ---
HPI - General Adult General Chief complaint: Unspecified Stated complaint: left sided pain Time Seen by Provider: 04/29/23 12:15 Source: patient Mode of arrival: ambulatory Limitations: no limitations History of Present Illness HPI narrative: 27 years old white female drove herself to the emergency room complaining of pain at the left upper chest, dry cough daily. And left shoulder for the last 5 days, denies any aggravating or relieving factors. Patient have 3 children last 1 is 6 months old. Also complaining of nausea, general fatigue, headache, sometimes hard to breathe. History of systemic lupus, patient, Related Data Home Medications Medication Instructions Recorded Confirmed belimumab 200 mg/mL subcutaneous mg subcut 04/29/23 auto-injector (Benlysta) Allergies Allergy/AdvReac Type Severity Reaction Status Date / Time metoclopramide [From Reglan] Allergy increase Verified 04/29/23 12:05 heart rate Review of Systems Review of Systems: All systems reviewed & are unremarkable except as noted in HPI and below PMFSH Past Medical History Medical History Lupus Pelvic inflammatory disease (PID) Sepsis secondary to UTI Thoracic outlet syndrome Surgical History Surgical History No pertinent past surgical history Social History Social History Smoking status: Never smoker Alcohol intake: never Substance use: never Gender identity (if verbalized by the patient): Female Exam Narrative: General appearance: Well-developed, well-nourished Skin: Normal color, butterfly rash on the face consistent with systemic lupus Head: Normocephalic, nontraumatic Eyes: Clear conjunctiva ENT: Oropharynx normal, ears normal, nose normal Neck: Supple, nontender Chest and respiratory: Airway patent, no respiratory distress, no accessory muscle use, mild tenderness left lower ribs laterally, no bruises, no rash, pain worse with left shoulder movement. No bruises, no swelling or rash. Heart: Regular rate/rhythm Abdomen: Soft, nontender, no organomegaly, quiet bowel sounds Vascular: Normal peripheral pulses, normal capillary refill. Musculoskeletal: Normal range of motion, nontender back Neurologic: Alert and oriented ?3, [employer] is normal as tested, no gross motor deficit Course Vital Signs Vital signs: Vital Signs Pulse Rate 81 04/29/23 11:57 Respiratory Rate 18 04/29/23 11:57 Blood Pressure 124/94 H 04/29/23 11:57 Pulse Oximetry 100 04/29/23 11:57 Oxygen Delivery Room Air 04/29/23 11:57 Pulse Rate 81 04/29/23 11:57 Respiratory Rate 18 04/29/23 11:57 Blood Pressure 124/94 H 04/29/23 11:57 Pulse Oximetry 100 04/29/23 11:57 Oxygen Delivery Room Air 04/29/23 11:57 Medical Decision Making [facility] Narrative Medical decision making narrative: 27 years old white female presents with left upper chest pain and left shoulder pain started few days ago, physical exam consistent with localized tenderness at the left upper chest and lower ribs and shoulder anteriorly. No rash or swelling. Differential diagnosis include musculoskeletal, pleurisy, pneumothorax, pulmonary embolism. Workup today include CBC, CMP, chest x-ray, troponin, EKG, urine analysis and D-dimer. Workup today showed no significant abnormality to explain patient condition, musculoskeletal pain is my concern. Patient will be discharged on naproxen 500 twice daily. Differential Diagnosis Differential Diagnosis: Pneumonia, pneumothorax, pleural effusion, pulmonary embolism, pleurisy, m
[2023-04-29 13:33] LABS: Basophils Percent Auto 0.4 % (0.2-1.2); Eosinophils Absolute Auto 0.1 K/mm3 (0-0.3); Eosinophils Percent Auto 1.1 % (0-4.4); Hematocrit 41.1 % (37.0-47.0); Hemoglobin 12.9 g/dL (12.0-15.0); Immature Granulocyte Absolute 0.02 K/mm3 (0.00-0.031); Immature Granulocyte Percent A 0.4 % (0-0.5); Lymphocytes Absolute Auto 1.45 K/mm3 (0.9-3.2); Lymphocytes Percent Auto 32.6 % (18.3-44.2); Mean Corpuscular HGB Conc 31.4 g/dl (32-36); Mean Corpuscular Hemoglobin 26.4 pg (26-34); Mean Platelet Volume 10.1 fl (7.4-10.4); Monocytes Absolute Auto 0.5 K/mm3 (0.1-0.6); Monocytes Percent Auto 11.2 % (2.6-8.5); Neutrophils Absolute Auto 2.4 K/mm3 (1.3-6.7); Neutrophils Percent Auto 54.3 % (45.5-73.1); Platelet Count Result 302 k/mm3 (150-375); Red Blood Count 4.89 M/mm3 (4.2-5.4); Red Cell Distribution Width 15.6 % (11.5-14.5); White Blood Count 4.5 K/mm3 (4.5-10.0)
[2023-04-29 13:41] LABS: Appearance Urine Clear (Clear); Bacteria Urine Rare /hpf; Bilirubin Urine Negative (Negative); Blood Urine Negative (Negative); Color Urine Yellow (Yellow); Glucose Urine UA Negative (Negative); Ketones Urine Negative (Negative); Leukocyte Esterase Ur Trace LEU/UL (Negative); Nitrate Urine Negative (Negative); Non Pathogenic Casts 0-2; Protein Urine Negative (Negative); RBC Urine 0-2 /hpf (0-2); Specific Grav Ur 1.008 (1.001-1.035); Squamous Epithelial Cell Urine Occasional /hpf (Few); Urobilinogen Urine 0.2 mg/dL (<2.0); WBC Urine 0-5 /hpf; pH Urine 5.5 (5.0-9.0)
[2023-04-29 13:43] LABS: Alanine Aminotransferase 18 U/L (6-35); Albumin Level 4.5 g/dL (3.5-5.1); Alkaline Phosphatase 57 U/L (38-126); Anion Gap 5 mmol/L (8-16); Aspartate Amino Transferase 22 U/L (14-36); Bilirubin,Total 0.5 mg/dL (0.2-1.3); Blood Urea Nitrogen 13 mg/dL (7-17); Carbon Dioxide 26 mmol/L (22-30); Chloride 103 mmol/L (98-107); Estimated CRCL calculation 98 ml/min; Estimated Glomerular Filt Rate > 60; Glucose 86 mg/dL (65-110); Potassium 3.6 mmol/L (3.4-5.0); Sodium 134 mmol/L (137-145)
[2023-04-29 13:52] LABS: D Dimer < 0.27 ug/mL (<0.48)
[2023-04-29 13:53] LABS: Add Urine Microscopic? YES
[2023-04-29 13:55] LABS: Troponin I < 0.012 ng/mL (0.000-0.034)
[2023-04-29 14:35] LABS: Erythrocyte Sedimentation Rate 17 mm/hr (0-20)
== END 2023-04-29 14:41 | disposition home or self-care (01) ==
PROVIDERS: Emergency Provider Emergency Medicine
DX: R07.9 Chest pain, unspecified (principal); Z87.440 Personal history of urinary (tract) infections; G54.0 Brachial plexus disorders
CPT/HCPCS: 36415; 71045; 80053; 81001; 81025; 84484; 85025; 85380; 85652; 93005; 99284

== ENCOUNTER 2023-06-28 13:07 | Emergency (ER) | payer OTHER, SELFPAY ==
--- NOTE | ~2023-06-28 | CT_ITS ---
EXAMINATION: CT abdomen pelvis w con DATE: 06/28/2023 14:07 INDICATION: Right abdominal pain TECHNIQUE: Computed tomography (CT) of the abdomen and pelvis was performed with 100 mL Omnipaque-350 intravenous contrast. Automated exposure control and iterative reconstruction technique were employe d. The dose-length product was 438.25 mGy-cm. COMPARISON: None. FINDINGS: Lower thorax: Unremarkable Liver: Normal. Biliary/Gallbladder: Gallbladder is normal. No bile duct dilation. Pancreas: No mass or duct dilation. Spleen: Normal. Adrenals:No mass. Kidneys: No suspicious mass, obstructing stone, or hydronephrosis. GI tract: Mild distal esophageal and gastric wall edema No small or large bowel dilation. Normal appe ndix. Mesentery/Peritoneum: No ascites, mass, or free air. Retroperitoneum: No mass. Pelvis: The urinary bladder is mostly decompressed. IUD, in the uterine fundus/body. Soft Tissues: Soft tissues and body wall unremarkable. Bones: No acute osseous finding. IMPRESSION: Mild esophagitis/gastritis. IUD, in good position Reviewed, dictated and finalized at location K.
[2023-06-28 13:11] VITALS: BP 119/69; PULSE 91; RESP 18; TEMP 36.3; O2SAT 100
--- NOTE | 2023-06-28 13:23 | ED.ABDPAIN ---
HPI - Abdominal Pain General Chief Complaint: Abdominal Pain Stated Complaint: RLQ pain Time Seen by Provider: 06/28/23 13:22 Source: patient Related Data Home Medications Medication Instructions Recorded Confirmed belimumab 200 mg/mL subcutaneous mg subcut 04/29/23 auto-injector (Benlysta) Allergies Allergy/AdvReac Type Severity Reaction Status Date / Time metoclopramide [From Reglan] Allergy increase Verified 06/28/23 13:17 heart rate PMFSH Past Medical History Medical History Lupus Pelvic inflammatory disease (PID) Sepsis secondary to UTI Thoracic outlet syndrome Surgical History Surgical History No pertinent past surgical history Social History Social History Smoking status: Never smoker Alcohol intake: never Substance use: never Gender identity (if verbalized by the patient): Female Course Vital Signs Vital signs: Vital Signs Temperature 36.3 C L 06/28/23 13:11 Pulse Rate 91 06/28/23 13:11 Respiratory Rate 18 06/28/23 13:11 Blood Pressure 119/69 06/28/23 13:11 Pulse Oximetry 100 06/28/23 13:11 Temperature 36.3 C L 06/28/23 13:11 Pulse Rate 91 06/28/23 13:11 Respiratory Rate 18 06/28/23 13:11 Blood Pressure 119/69 06/28/23 13:11 Pulse Oximetry 100 06/28/23 13:11 MDM - Abdominal Pain MDM Narrative Medical decision making narrative: Patient presents with intermittent right mid abdominal pain, for the last 3 to 4 days. Also complaining of left lower back pain for a while. Patient reports some nausea lately. She denies any fever, vomiting, diarrhea, constipation. History of systemic lupus. Have 3 kids, the youngest is 8 months old with a lot of physical activities. Physical examination is insignificant for abdominal pain, slight tenderness left lower back pain without bruises or swelling or rash. Differential diagnosis include constipation, urinary tract infection, stress related, abdominal wound pain, lower back muscular pain, urinary tract infection. Work-up today showed insignificant abnormality, CAT scan of the abdomen pelvis with IV contrast showed possible gastritis, esophagitis. In the ED patient received 1 L of normal saline IV, 0.5 mg of Dilaudid IV, 4 mg of Zofran IV with significant improvement. I plan to discharge patient on omeprazole 40 mg once a day and Zofran as needed. Musculoskeletal pain is my concern, could be related to patient chronic systemic lupus. the pt was discharged to home.the pt,s condition upon discharge was fair,education was provided to the pt in reference to the final impression,discharge study results,treatment,prognosis and need for follow up . Differential Diagnosis Differential diagnosis: Likely abdominal pain, acute appendicitis, calculus of kidney, constipation, diverticulitis, gastroenteritis and pancreatitis Medical Records Attestation: I reviewed the patient's medical records. Lab Data Attestation: I reviewed the patient's lab results. 06/28/23 13:27 06/28/23 14:03 Labs: Lab Results 06/28/23 06/28/23 Range/Units 13:27 14:03 WBC 5.1 (4.5-10.0) K/mm3 RBC 4.65 (4.2-5.4) M/mm3 Hgb 13.2 (12.0-15.0) g/dL Hct 40.8 (37.0-47.0) % MCV 87.7 (80-100) fl MCH 28.4 (26-34) pg MCHC 32.4 (32-36) g/dl RDW 14.6 H (11.5-14.5) % Plt Count 294 (150-375) k/mm3 MPV 10.3 (7.4-10.4) fl Immature Gran % (Auto) 0.2 (0-0.5) % Neut % (Auto) 57.6 (45.5-73.1) % Lymph % (Auto) 29.0 (18.3-44.2) % [place] % (Auto) 12.0 H (2.6-8.5) % Eos % (Auto) 1.0 (0-4.4) % Baso % (Auto) 0.2 (0.2-1.2) % Lymph # (Auto) 1.48 (0.9-3.2) K/mm3 [place] # (Auto) 0.6 (0.1-0.6) K/mm3 Eos # (Auto) 0.1 (0-0.3) K/mm3 Baso # (Auto) 0.0 (0.0-0.1) K/mm3 Abs Immat Gran (auto) 0.01 (0.00-0.031) K/
[2023-06-28 13:37] LABS: Basophils Percent Auto 0.2 % (0.2-1.2); Eosinophils Absolute Auto 0.1 K/mm3 (0-0.3); Hematocrit 40.8 % (37.0-47.0); Hemoglobin 13.2 g/dL (12.0-15.0); Immature Granulocyte Absolute 0.01 K/mm3 (0.00-0.031); Immature Granulocyte Percent A 0.2 % (0-0.5); Lymphocytes Absolute Auto 1.48 K/mm3 (0.9-3.2); Mean Corpuscular HGB Conc 32.4 g/dl (32-36); Mean Corpuscular Hemoglobin 28.4 pg (26-34); Mean Corpuscular Volume 87.7 fl (80-100); Mean Platelet Volume 10.3 fl (7.4-10.4); Monocytes Absolute Auto 0.6 K/mm3 (0.1-0.6); Neutrophils Absolute Auto 2.9 K/mm3 (1.3-6.7); Neutrophils Percent Auto 57.6 % (45.5-73.1); Platelet Count Result 294 k/mm3 (150-375); Red Blood Count 4.65 M/mm3 (4.2-5.4); Red Cell Distribution Width 14.6 % (11.5-14.5); White Blood Count 5.1 K/mm3 (4.5-10.0)
[2023-06-28 13:38] LABS: Appearance Urine Clear (Clear); Bilirubin Urine Negative (Negative); Blood Urine Negative (Negative); Color Urine Yellow (Yellow); Glucose Urine UA Negative (Negative); Ketones Urine Negative (Negative); Leukocyte Esterase Ur Negative LEU/UL (Negative); Nitrate Urine Negative (Negative); Protein Urine Negative (Negative); Specific Grav Ur >= 1.030 (1.001-1.035); Urobilinogen Urine 0.2 mg/dL (<2.0)
[2023-06-28 13:41] LABS: Add Urine Microscopic? NO
[2023-06-28] MEDS: SODIUM CHLORIDE 0.9% IV 1,000 ML 999 ML IV CONT (13:46)
[2023-06-28] MEDS: HYDROmorphone HCL INJ (*CRX) 1 MG/ML SYR 0.5 MG IV PUSH (13:46)
[2023-06-28] MEDS: ONDANSETRON INJ 4 MG/2 ML VIAL IV PUSH (13:46)
[2023-06-28 13:59] LABS: Alanine Aminotransferase 18 U/L (6-35); Albumin Level 4.6 g/dL (3.5-5.1); Alkaline Phosphatase 65 U/L (38-126); Anion Gap 9 mmol/L (8-16); Aspartate Amino Transferase 23 U/L (14-36); Bilirubin,Total 0.7 mg/dL (0.2-1.3); Blood Urea Nitrogen 11 mg/dL (7-17); Calcium 9.4 mg/dL (8.4-10.2); Carbon Dioxide 25 mmol/L (22-30); Chloride 103 mmol/L (98-107); Estimated CRCL calculation 103 ml/min; Estimated Glomerular Filt Rate > 60; Glucose 94 mg/dL (65-110); Lipase 73 U/L (23-300); Potassium 3.7 mmol/L (3.4-5.0); Sodium 137 mmol/L (137-145)
[2023-06-28 14:08] LABS: Estimated CRCL calculation 91 ml/min; Estimated Glomerular Filt Rate > 60
== END 2023-06-28 15:19 | disposition home or self-care (01) ==
PROVIDERS: Emergency Provider Emergency Medicine
DX: K29.70 Gastritis, unspecified, without bleeding (principal); M54.50 Low back pain, unspecified; M32.9 Systemic lupus erythematosus, unspecified; Z97.5 Presence of (intrauterine) contraceptive device; Z87.440 Personal history of urinary (tract) infections
CPT/HCPCS: 36415; 74177; 80053; 81003; 81025; 83690; 85025; 96361; 96374; 96375; 99284; J1170; J2405; J7030; Q9967

== ENCOUNTER 2023-08-10 09:33 | Emergency (ER) | payer OTHER, SELFPAY ==
[2023-08-10 09:38] VITALS: BP 121/89; PULSE 102; RESP 20; TEMP 36.6; O2SAT 96
--- NOTE | 2023-08-10 09:49 | ED.URI ---
HPI - URI/Sore Throat General Chief Complaint: Upper Respiratory Infection Stated Complaint: Sore Throat/Headache/Vaginal Issue Time Seen by Provider: 08/10/23 09:49 Source: patient Mode of arrival: ambulatory Limitations: no limitations History of Present Illness HPI Narrative: 27-year-old female presents with complaint of sore throat for 3 weeks. Has been on methotrexate for 1 month states that sore throat started 1 week after starting this medication. Called her doctor regarding sore throat and her doctor told her that she needed to be seen for concern for infection. Her doctor said that if she does have a infection she needs to stop her methotrexate while taking antibiotic. Patient complaining of intermittent headaches, fatigue. Also complaining of vaginal itching and white clumpy discharge. Concerned she has a yeast infection. All systems reviewed and negative except as noted above. Related Data Home Medications Medication Instructions Recorded Confirmed belimumab 200 mg/mL subcutaneous 200 mg subcut WEEKLY 04/29/23 08/10/23 auto-injector (Benlysta) folic acid 1 mg tablet 1 mg PO DAILY 08/10/23 08/10/23 hydroxychloroquine 200 mg tablet 400 mg PO DAILY 08/10/23 08/10/23 methotrexate sodium (PF) 25 mg/mL mg 08/10/23 injection solution Allergies Allergy/AdvReac Type Severity Reaction Status Date / Time metoclopramide [From Reglan] Allergy increase Verified 08/10/23 09:47 heart rate Review of Systems Review of Systems: CONSTITUTIONAL: Denies fever, chills, or sweats. EYES: Denies visual changes, redness, or discharge. ENT: Denies rhinorrhea, congestion. Reports sore throat. Reports otalgia. CARDIOVASCULAR: Denies chest pain, palpitations, or edema. RESPIRATORY: Denies cough or dyspnea. GASTROINTESTINAL: Denies abdominal pain, nausea, vomiting, or diarrhea. GENITOURINARY: Denies dysuria or hematuria. Reports vaginal itching and white discharge. SKIN: Denies rash or itching. MUSCULOSKELETAL: Denies back pain, joint pain, or myalgia. NEUROLOGIC: Denies headache, numbness, or weakness. PSYCHIATRIC: Denies anxiety or depression. All other systems reviewed are negative, except as documented in HPI. [facility] Past Medical History Medical History Lupus Pelvic inflammatory disease (PID) Sepsis secondary to UTI Thoracic outlet syndrome Surgical History Surgical History No pertinent past surgical history Social History Social History Smoking status: Never smoker Alcohol intake: never Substance use: never Gender identity (if verbalized by the patient): Female Comments At time of signature, agree with nursing past medical, surgical, social and family history. There is no relevant family history pertinent to the presenting complaint. Exam Narrative: GENERAL: This is a well-nourished, well-developed patient, in no apparent distress. HEAD: normocephalic, atraumatic. EYES: PERRL. Sclera clear/white. Vision is grossly intact. EARS: External ears normal, auditory canals clear and without drainage, TMs normal without perforation. Hearing grossly intact. NOSE: External nose normal with no obvious nasal discharge, nares without redness, no rhinorrhea. THROAT: Mucous membranes moist, mild erythema without swelling or exudates. NECK: Neck supple, non-tender without lymphadenopathy, masses or thyromegaly. CARDIOVASCULAR: Regular rate and rhythm without murmurs, gallops, or rubs. RESPIRATORY: Clear to auscultation. Breath sounds equal bilaterally. No wheezes, rales, or rhonchi. SKIN: warm, Dry, intact with no suspicious lesions or rash, good texture and turgor. NEURO: awake, alert, and oriented to person, place and time. There were no obvious focal neurologic abnormalities. EXTREMITIES: No joint tenderness, effusion, or edema noted. Genitrourinary:
== END 2023-08-10 10:09 | disposition home or self-care (01) ==
PROVIDERS: Emergency Provider Nurse Practitioner Family
DX: J02.0 Streptococcal pharyngitis (principal); B37.31 Acute candidiasis of vulva and vagina; Z79.899 Other long term (current) drug therapy
CPT/HCPCS: 87880; 99213; G0463